=== PATIENT | male | born 1970 | race Two or more races ===

== ENCOUNTER 2019-06-18 23:43 | Inpatient (IN) | payer MEDICARE ==
[~2019-06-18] VITALS: Ht 180.3 cm; Wt 95.3 kg
[~2019-06-18 23:43] MED LIST: BUPR-93 PO; QUET300T2 PO
[2019-06-19] MEDS ORDERED: HALOPERIDOL LACTATE 5 MG/ML VIAL IM ONE (00:15)
[2019-06-19] MEDS ORDERED: LORazepam 2 MG/ML VIAL IM ONE (00:15)
[2019-06-19 00:48] LABS: BASOPHILS % (AUTO) 0.7 % (0.0-2.0); EOSINOPHILS % (AUTO) 0 % (1.0-6.0); HEMATOCRIT 45.6 % (41-53); HEMOGLOBIN 15.4 g/dL (13.5-17.5); LYMPHOCYTES # (AUTO) 1.3 K/uL (1.0-4.8); LYMPHOCYTES % (AUTO) 11.1 % (22.0-44.0); MEAN CORPUSCULAR HEMOGLOBIN 29.5 pg (26.0-34.0); MEAN CORPUSCULAR HGB CONC 33.8 G/dL (31.0-37.0); MEAN CORPUSCULAR VOLUME 87 fL (80-100); MONOCYTES # (AUTO) 0.9 K/uL (0.1-1.0); MONOCYTES % (AUTO) 7.8 % (2.0-9.0); NEUTROPHILS # (AUTO) 9.3 K/uL (1.8-7.7); NEUTROPHILS % (AUTO) 80.4 % (40.0-70.0); PLATELET COUNT (AUTO) 292 K/uL (150-450); RED BLOOD CELL COUNT(AUTO) 5.22 MIL/uL (4.50-5.90); RED CELL DISTRIBUTION WIDTH 14.4 % (11.5-14.5)
[2019-06-19 01:06] LABS: ALANINE AMINOTRANSFERASE 33 U/L (12-78); ALKALINE PHOSPHATASE 108 U/L (46-116); ANION GAP 19 mmol/L (8-16); ASPARTATE AMINOTRANSFERASE 33 U/L (15-37); BILIRUBIN,TOTAL 0.2 mg/dL (0.1-1.0); CALCIUM, TOTAL 8.8 mg/dL (8.8-10.5); CARBON DIOXIDE 20 mmol/L (22-29); CHLORIDE 100 mmol/L (98-107); CREATININE 1.44 mg/dL (0.60-1.30); GLOMERULAR FILTR. RATE CALC 52 mL/min (>60); GLUCOSE,RANDOM 164 mg/dL (70-110); POTASSIUM 3.7 mmol/L (3.5-5.1); SODIUM SERUM 139 mmol/L (136-145); TOTAL PROTEIN, SERUM 8.2 g/dL (6.4-8.2)
[2019-06-19 01:11] LABS: ACETAMINOPHEN < 2 mcg/mL (10-30)
[2019-06-19 01:17] LABS: UREA NITROGEN, BLOOD 19 mg/dL (7-18)
[2019-06-19] MEDS ORDERED: SODIUM CHLORIDE 0.9% 1,000 ML IV ONE ×3 (02:30→08:15)
[2019-06-19 03:43] LABS: AMPHET/METH SCREEN,URINE POSITIVE (NEGATIVE); BARBITURATE SCREEN, URINE NEGATIVE (NEGATIVE); BENZODIAZEPINES SCREEN,URINE NEGATIVE (NEGATIVE); CANNABINOID SCREEN,URINE NEGATIVE (NEGATIVE); COCAINE SCREEN,URINE NEGATIVE (NEGATIVE); METHADONE SCREEN, URINE NEGATIVE (NEGATIVE); OPIATE SCREEN,URINE NEGATIVE (NEGATIVE); PHENCYCLIDINE SCREEN,URINE NEGATIVE (NEGATIVE)
[2019-06-19] MEDS ORDERED: 0.9% SODIUM CHLORIDE 10 ML SYRINGE IVP PRN (04:15)
[2019-06-19] MEDS ORDERED: ACETAMINOPHEN 325 MG TABLET PO PRN ×2 (04:15→08:15)
[2019-06-19] MEDS ORDERED: LORazepam 2 MG/ML VIAL IVP PRN (08:15)
[2019-06-19] MEDS ORDERED: FAMOTIDINE 20 MG TABLET PO SCH (09:00)
[2019-06-19] MEDS: MULTIVITAMINS WITH MINERALS, THERAPEUTIC TABLET PO SCH (10:08)
[2019-06-19] MEDS: DOCUSATE SODIUM 100 MG CAPSULE PO SCH ×3 (10:08→21:01)
[2019-06-19] MEDS ORDERED: BuPROPion HCL XL 150 MG ER TABLET PO SCH (12:15)
[2019-06-19] MEDS ORDERED: CloNIDine HCL 0.1 MG TABLET PO PRN (14:00)
[2019-06-19] MEDS ORDERED: QUEtiapine FUMARATE 200 MG TABLET PO SCH (21:00)
[2019-06-20] MEDS ORDERED: BuPROPion HCL XL 150 MG ER TABLET PO SCH (09:00)
[2019-06-20] MEDS ORDERED: ZOLPIDEM TARTRATE 10 MG TABLET PO PRN (09:30)
[2019-06-20] MEDS ORDERED: HALOPERIDOL 5 MG TABLET PO PRN (09:30)
[2019-06-20 09:47] LABS: BASOPHILS % (AUTO) 0.7 % (0.0-2.0); EOSINOPHILS % (AUTO) 7.7 % (1.0-6.0); HEMOGLOBIN 13.8 g/dL (13.5-17.5); LYMPHOCYTES # (AUTO) 1.9 K/uL (1.0-4.8); LYMPHOCYTES % (AUTO) 30.6 % (22.0-44.0); MEAN CORPUSCULAR HEMOGLOBIN 29.7 pg (26.0-34.0); MEAN CORPUSCULAR HGB CONC 33.7 G/dL (31.0-37.0); MEAN CORPUSCULAR VOLUME 88 fL (80-100); MONOCYTES # (AUTO) 0.8 K/uL (0.1-1.0); MONOCYTES % (AUTO) 12.5 % (2.0-9.0); NEUTROPHILS % (AUTO) 48.5 % (40.0-70.0); PLATELET COUNT (AUTO) 232 K/uL (150-450); RED BLOOD CELL COUNT(AUTO) 4.65 MIL/uL (4.50-5.90); RED CELL DISTRIBUTION WIDTH 14.3 % (11.5-14.5)
[2019-06-20 09:59] LABS: ANION GAP 6 mmol/L (8-16); CALCIUM, TOTAL 8.6 mg/dL (8.8-10.5); CARBON DIOXIDE 27 mmol/L (22-29); CHLORIDE 107 mmol/L (98-107); CREATININE 0.91 mg/dL (0.60-1.30); GLOMERULAR FILTR. RATE CALC > 60 mL/min (>60); GLUCOSE,RANDOM 93 mg/dL (70-110); POTASSIUM 4.2 mmol/L (3.5-5.1); SODIUM SERUM 140 mmol/L (136-145); UREA NITROGEN, BLOOD 10 mg/dL (7-18)
[2019-06-20 11:52] VITALS: BP 131/89
[2019-06-20] MEDS: MULTIVITAMINS WITH MINERALS, THERAPEUTIC TABLET PO SCH (13:33)
[2019-06-20 16:02] VITALS: BP 133/87
[2019-06-20] MEDS ORDERED: DOCUSATE SODIUM 100 MG CAPSULE PO PRN (16:45)
[2019-06-20] MEDS ORDERED: ALBUTEROL SULFATE HFA 90 MCG/PUFF 8 GM INHALER IH PRN (16:45)
[2019-06-20] MEDS ORDERED: IBUPROFEN 400 MG TABLET PO PRN (16:45)
[2019-06-20] MEDS ORDERED: MAGNESIUM HYDROXIDE SUSPENSION 30 ML UDCUP PO PRN (16:45)
[2019-06-20] MEDS ORDERED: NICOTINE 14 MG/24 HOUR PATCH TD PRN (16:45)
[2019-06-20] MEDS ORDERED: GuaiFENesin/D-METHORPHAN [SUGAR-FREE] 200-20MG/10 ML SYRUP UDCUP PO PRN (16:45)
[2019-06-20] MEDS ORDERED: PETROLATUM,WHITE 28 GM JELLY TP PRN (16:45)
[2019-06-20] MEDS ORDERED: ONDANSETRON HCL 4 MG TABLET PO PRN (16:45)
[2019-06-20] MEDS ORDERED: CloNIDine HCL 0.1 MG TABLET PO PRN (16:45)
[2019-06-20] MEDS ORDERED: MAG HYDROX/AL HYDROX/SIMETH ES 30 ML SUSPENSION UDCUP PO PRN (16:45)
[2019-06-20] MEDS ORDERED: LOPERAMIDE HCL 2 MG CAPSULE PO PRN (16:45)
[2019-06-20] MEDS: ACETAMINOPHEN 325 MG TABLET PO PRN (18:16)
[2019-06-20] MEDS: LORazepam 2 MG TABLET PO PRN (18:16)
[2019-06-20] MEDS ORDERED: QUEtiapine FUMARATE 200 MG TABLET PO SCH (21:00)
[2019-06-20] MEDS ORDERED: QUEtiapine FUMARATE 300 MG TABLET PO SCH (21:00)
[2019-06-20] MEDS: QUEtiapine FUMARATE 200 MG TABLET PO SCH (21:14)
[2019-06-21 05:53] VITALS: BP 128/83
[2019-06-21] MEDS: FAMOTIDINE 20 MG TABLET PO SCH ×2 (08:05→09:00)
[2019-06-21] MEDS: MULTIVITAMINS WITH MINERALS, THERAPEUTIC TABLET PO SCH ×2 (08:06→09:00)
[2019-06-21] MEDS: BuPROPion HCL XL 150 MG ER TABLET PO SCH (08:07)
[2019-06-21 08:15] VITALS: BP 130/80
[2019-06-21] MEDS ORDERED: BuPROPion HCL XL 150 MG ER TABLET PO SCH ×2 (09:00)
[2019-06-21] MEDS: LORazepam 2 MG TABLET PO PRN ×2 (13:11→13:12)
[2019-06-21 16:02] VITALS: BP 125/75
[2019-06-21] MEDS: THIAMINE HCL 100 MG TABLET PO SCH (16:06)
[2019-06-21] MEDS: BACITRACIN 28.4 GM OINTMENT TP SCH (17:00)
[2019-06-21] MEDS: SULFAMETHOX/TRIMETH DS 800-160 MG/TABLET PO SCH (17:18)
[2019-06-21] MEDS: QUEtiapine FUMARATE 200 MG TABLET PO SCH (20:07)
[2019-06-22 00:27] VITALS: BP 133/84
[2019-06-22 08:03] VITALS: BP 138/87
[2019-06-22] MEDS: SULFAMETHOX/TRIMETH DS 800-160 MG/TABLET PO SCH ×2 (08:34→16:40)
[2019-06-22] MEDS: BuPROPion HCL XL 150 MG ER TABLET PO SCH (08:34)
[2019-06-22] MEDS: MULTIVITAMINS WITH MINERALS, THERAPEUTIC TABLET PO SCH (08:34)
[2019-06-22] MEDS: FOLIC ACID 1 MG TABLET PO SCH (08:34)
[2019-06-22] MEDS: THIAMINE HCL 100 MG TABLET PO SCH ×2 (08:34→16:40)
[2019-06-22] MEDS: FAMOTIDINE 20 MG TABLET PO SCH (08:35)
[2019-06-22] MEDS: BACITRACIN 28.4 GM OINTMENT TP SCH ×2 (08:36→16:40)
[2019-06-22] MEDS: LORazepam 2 MG TABLET PO PRN (13:11)
[2019-06-22 16:15] VITALS: BP 132/79
[2019-06-22] MEDS: ACETAMINOPHEN 325 MG TABLET PO PRN (18:15)
[2019-06-22] MEDS: QUEtiapine FUMARATE 200 MG TABLET PO SCH (20:23)
[2019-06-23 00:47] VITALS: BP 131/82
[2019-06-23 08:12] VITALS: BP 103/61
[2019-06-23] MEDS: FAMOTIDINE 20 MG TABLET PO SCH (08:49)
[2019-06-23] MEDS: THIAMINE HCL 100 MG TABLET PO SCH ×2 (08:49→16:14)
[2019-06-23] MEDS: MULTIVITAMINS WITH MINERALS, THERAPEUTIC TABLET PO SCH (08:49)
[2019-06-23] MEDS: BuPROPion HCL XL 150 MG ER TABLET PO SCH (08:49)
[2019-06-23] MEDS: FOLIC ACID 1 MG TABLET PO SCH (08:49)
[2019-06-23] MEDS: SULFAMETHOX/TRIMETH DS 800-160 MG/TABLET PO SCH ×2 (09:22→16:14)
[2019-06-23] MEDS: BACITRACIN 28.4 GM OINTMENT TP SCH ×2 (09:23→16:15)
[2019-06-23] MEDS: LORazepam 2 MG TABLET PO PRN ×2 (13:09→19:30)
[2019-06-23 16:04] VITALS: BP 133/82
[2019-06-23] MEDS: QUEtiapine FUMARATE 300 MG TABLET PO SCH (20:05)
[2019-06-24 01:31] VITALS: BP 106/75
[2019-06-24 08:10] VITALS: BP 122/76
[2019-06-24] MEDS: BuPROPion HCL XL 150 MG ER TABLET PO SCH (08:38)
[2019-06-24] MEDS: FOLIC ACID 1 MG TABLET PO SCH (08:39)
[2019-06-24] MEDS: THIAMINE HCL 100 MG TABLET PO SCH ×2 (08:39→16:30)
[2019-06-24] MEDS: SULFAMETHOX/TRIMETH DS 800-160 MG/TABLET PO SCH ×2 (08:39→16:30)
[2019-06-24] MEDS: MULTIVITAMINS WITH MINERALS, THERAPEUTIC TABLET PO SCH (08:39)
[2019-06-24] MEDS: FAMOTIDINE 20 MG TABLET PO SCH (08:52)
[2019-06-24] MEDS: BACITRACIN 28.4 GM OINTMENT TP SCH ×2 (08:57→16:31)
[2019-06-24] MEDS: LORazepam 2 MG TABLET PO PRN (12:56)
[2019-06-24 16:13] VITALS: BP 122/94
[2019-06-24] MEDS: QUEtiapine FUMARATE 300 MG TABLET PO SCH (20:34)
[2019-06-25 08:14] VITALS: BP 137/86
[2019-06-25] MEDS: FAMOTIDINE 20 MG TABLET PO SCH (08:46)
[2019-06-25] MEDS: SULFAMETHOX/TRIMETH DS 800-160 MG/TABLET PO SCH ×2 (08:46→16:20)
[2019-06-25] MEDS: FOLIC ACID 1 MG TABLET PO SCH (08:46)
[2019-06-25] MEDS: BuPROPion HCL XL 150 MG ER TABLET PO SCH (08:46)
[2019-06-25] MEDS: BACITRACIN 28.4 GM OINTMENT TP SCH ×2 (08:46→16:25)
[2019-06-25] MEDS: MULTIVITAMINS WITH MINERALS, THERAPEUTIC TABLET PO SCH (08:46)
[2019-06-25] MEDS: THIAMINE HCL 100 MG TABLET PO SCH ×2 (08:46→16:20)
[2019-06-25] MEDS: LORazepam 2 MG TABLET PO PRN (13:02)
[2019-06-25] MEDS: FLUTICASONE PROPIONATE 50 MCG/SPRAY 16 GM NASAL SPRAY NASAL PRN (14:46)
[2019-06-25 16:11] VITALS: BP 122/71
[2019-06-25] MEDS: QUEtiapine FUMARATE 300 MG TABLET PO SCH (20:16)
[2019-06-26 00:22] VITALS: BP 134/88
[2019-06-26] MEDS: THIAMINE HCL 100 MG TABLET PO SCH ×2 (08:37→17:19)
[2019-06-26] MEDS: FAMOTIDINE 20 MG TABLET PO SCH (08:37)
[2019-06-26] MEDS: MULTIVITAMINS WITH MINERALS, THERAPEUTIC TABLET PO SCH (08:37)
[2019-06-26] MEDS: SULFAMETHOX/TRIMETH DS 800-160 MG/TABLET PO SCH ×2 (08:37→17:19)
[2019-06-26] MEDS: BuPROPion HCL XL 150 MG ER TABLET PO SCH (08:38)
[2019-06-26] MEDS: FOLIC ACID 1 MG TABLET PO SCH (08:38)
[2019-06-26] MEDS: BACITRACIN 28.4 GM OINTMENT TP SCH ×2 (08:39→17:19)
[2019-06-26 08:42] VITALS: BP 130/80
[2019-06-26] MEDS ORDERED: ONDANSETRON HCL 4 MG/2 ML VIAL IM PRN (09:15)
[2019-06-26] MEDS ORDERED: MetroNIDAZOLE 500 MG TABLET PO SCH (13:00)
[2019-06-26] MEDS: LORazepam 2 MG TABLET PO PRN (13:32)
[2019-06-26 16:04] VITALS: BP 130/81
[2019-06-26] MEDS: MetroNIDAZOLE 500 MG TABLET PO SCH (17:19)
[2019-06-26] MEDS: QUEtiapine FUMARATE 300 MG TABLET PO SCH (20:06)
[2019-06-26] MEDS: ACETAMINOPHEN 325 MG TABLET PO PRN (20:07)
[2019-06-26] MEDS: FLUTICASONE PROPIONATE 50 MCG/SPRAY 16 GM NASAL SPRAY NASAL PRN (20:13)
[2019-06-27 05:29] VITALS: BP 106/65
[2019-06-27 08:10] VITALS: BP 123/82
[2019-06-27] MEDS: BACITRACIN 28.4 GM OINTMENT TP SCH ×2 (09:00→17:00)
[2019-06-27] MEDS: SULFAMETHOX/TRIMETH DS 800-160 MG/TABLET PO SCH ×2 (09:10→16:40)
[2019-06-27] MEDS: FAMOTIDINE 20 MG TABLET PO SCH (09:10)
[2019-06-27] MEDS: THIAMINE HCL 100 MG TABLET PO SCH ×2 (09:10→16:40)
[2019-06-27] MEDS: MetroNIDAZOLE 500 MG TABLET PO SCH ×3 (09:10→16:41)
[2019-06-27] MEDS: MULTIVITAMINS WITH MINERALS, THERAPEUTIC TABLET PO SCH (09:10)
[2019-06-27] MEDS: BuPROPion HCL XL 150 MG ER TABLET PO SCH (09:10)
[2019-06-27] MEDS: FOLIC ACID 1 MG TABLET PO SCH (09:10)
[2019-06-27] MEDS: LORazepam 2 MG TABLET PO PRN ×2 (12:35→16:41)
[2019-06-27 16:03] VITALS: BP 122/68
[2019-06-27] MEDS: QUEtiapine FUMARATE 200 MG TABLET PO SCH (20:13)
[2019-06-28 03:51] VITALS: BP 117/60
[2019-06-28] MEDS: MetroNIDAZOLE 500 MG TABLET PO SCH ×3 (08:15→16:45)
[2019-06-28 08:43] VITALS: BP 140/71
[2019-06-28] MEDS: FOLIC ACID 1 MG TABLET PO SCH (08:59)
[2019-06-28] MEDS: BACITRACIN 28.4 GM OINTMENT TP SCH ×2 (09:00→16:46)
[2019-06-28] MEDS: BuPROPion HCL XL 150 MG ER TABLET PO SCH (09:00)
[2019-06-28] MEDS: MULTIVITAMINS WITH MINERALS, THERAPEUTIC TABLET PO SCH (09:01)
[2019-06-28] MEDS: FAMOTIDINE 20 MG TABLET PO SCH (11:14)
[2019-06-28] MEDS: SULFAMETHOX/TRIMETH DS 800-160 MG/TABLET PO SCH ×2 (11:14→16:45)
[2019-06-28] MEDS: THIAMINE HCL 100 MG TABLET PO SCH ×2 (11:15→16:45)
[2019-06-28] MEDS: LORazepam 2 MG TABLET PO PRN ×2 (11:40→18:05)
[2019-06-28] MEDS: ACETAMINOPHEN 325 MG TABLET PO PRN (11:41)
[2019-06-28] MEDS: FLUTICASONE PROPIONATE 50 MCG/SPRAY 16 GM NASAL SPRAY NASAL PRN (17:57)
[2019-06-28] MEDS: QUEtiapine FUMARATE 200 MG TABLET PO SCH (20:26)
[2019-06-29 00:24] VITALS: BP 110/60
[2019-06-29 08:30] VITALS: BP 123/66
[2019-06-29] MEDS: SULFAMETHOX/TRIMETH DS 800-160 MG/TABLET PO SCH ×2 (09:04→16:30)
[2019-06-29] MEDS: FOLIC ACID 1 MG TABLET PO SCH (09:04)
[2019-06-29] MEDS: FAMOTIDINE 20 MG TABLET PO SCH (09:05)
[2019-06-29] MEDS: THIAMINE HCL 100 MG TABLET PO SCH ×2 (09:05→16:30)
[2019-06-29] MEDS: MetroNIDAZOLE 500 MG TABLET PO SCH ×3 (09:05→16:30)
[2019-06-29] MEDS: MULTIVITAMINS WITH MINERALS, THERAPEUTIC TABLET PO SCH (09:05)
[2019-06-29] MEDS: BuPROPion HCL XL 150 MG ER TABLET PO SCH (09:05)
[2019-06-29] MEDS: BACITRACIN 28.4 GM OINTMENT TP SCH ×2 (09:07→16:32)
[2019-06-29] MEDS: FLUTICASONE PROPIONATE 50 MCG/SPRAY 16 GM NASAL SPRAY NASAL PRN (10:49)
[2019-06-29] MEDS: LORazepam 2 MG TABLET PO PRN ×2 (10:50→18:10)
[2019-06-29 16:15] VITALS: BP_SYST 109; BP_SYST 116; BP_DIAS 80
[2019-06-29] MEDS: QUEtiapine FUMARATE 200 MG TABLET PO SCH (20:34)
[2019-06-30 00:51] VITALS: BP 115/71
[2019-06-30 08:10] VITALS: BP 115/69
[2019-06-30] MEDS: MetroNIDAZOLE 500 MG TABLET PO SCH ×3 (08:10→16:31)
[2019-06-30] MEDS: FAMOTIDINE 20 MG TABLET PO SCH (08:11)
[2019-06-30] MEDS: MULTIVITAMINS WITH MINERALS, THERAPEUTIC TABLET PO SCH (08:11)
[2019-06-30] MEDS: FOLIC ACID 1 MG TABLET PO SCH (08:11)
[2019-06-30] MEDS: SULFAMETHOX/TRIMETH DS 800-160 MG/TABLET PO SCH ×2 (08:11→16:31)
[2019-06-30] MEDS: BuPROPion HCL XL 150 MG ER TABLET PO SCH (08:11)
[2019-06-30] MEDS: THIAMINE HCL 100 MG TABLET PO SCH ×2 (08:11→16:31)
[2019-06-30] MEDS: BACITRACIN 28.4 GM OINTMENT TP SCH ×2 (08:12→16:32)
[2019-06-30] MEDS: LORazepam 2 MG TABLET PO PRN (13:05)
[2019-06-30 16:07] VITALS: BP 133/87
[2019-06-30] MEDS: QUEtiapine FUMARATE 200 MG TABLET PO SCH (20:32)
[2019-06-30] MEDS ORDERED: QUET300T2 PO (22:08)
[2019-06-30] MEDS ORDERED: BUPR-93 PO (22:08)
[2019-07-01] MEDS ORDERED: SULF1TAB42 PO ×2 (08:00→08:08)
[2019-07-01] MEDS ORDERED: FAMO20 PO (08:00)
[2019-07-01] MEDS ORDERED: BACI30OI6 TP (08:01)
[2019-07-01 08:16] VITALS: BP 132/73
[2019-07-01] MEDS: SULFAMETHOX/TRIMETH DS 800-160 MG/TABLET PO SCH (08:44)
[2019-07-01] MEDS: MULTIVITAMINS WITH MINERALS, THERAPEUTIC TABLET PO SCH (08:44)
[2019-07-01] MEDS: BuPROPion HCL XL 150 MG ER TABLET PO SCH (08:44)
[2019-07-01] MEDS: FAMOTIDINE 20 MG TABLET PO SCH (08:44)
[2019-07-01] MEDS: THIAMINE HCL 100 MG TABLET PO SCH (08:44)
[2019-07-01] MEDS: FOLIC ACID 1 MG TABLET PO SCH (08:44)
[2019-07-01] MEDS: BACITRACIN 28.4 GM OINTMENT TP SCH (08:45)
== END 2019-07-01 10:00 | disposition home or self-care (01) | DRG 885 ==
LOC: EMS 23:54 → EDBD 23:54 → B2X 06-20 12:43 → B2S 06-30 09:32 → B2X 06-30 09:51
DX: F25.1 Schizoaffective disorder, depressive type (principal); N17.9 Acute kidney failure, unspecified; R65.10 Systemic inflammatory response syndrome (SIRS) of non-infectious origin without acute organ dysfunction; G44.209 Tension-type headache, unspecified, not intractable; I10 Essential (primary) hypertension; J30.9 Allergic rhinitis, unspecified; F15.10 Other stimulant abuse, uncomplicated; F41.9 Anxiety disorder, unspecified; F11.90 Opioid use, unspecified, uncomplicated; F10.10 Alcohol abuse, uncomplicated; Z59.0 Homelessness; Z79.899 Other long term (current) drug therapy; Z91.19 Patient's noncompliance with other medical treatment and regimen
CPT/HCPCS: G0480; G0481; J1630; J2060; J2405; J7030; Q0162

== ENCOUNTER 2019-07-07 11:36 | Inpatient (IN) | payer MEDICARE ==
[~2019-07-07] VITALS: Ht 180.3 cm; Wt 83.7 kg
[~2019-07-07 11:36] MED LIST changes: +BACI30OI6 TP; +FAMO20 PO; +SULF1TAB42 PO
[2019-07-07 11:42] VITALS: BP 132/71
[2019-07-07] MEDS ORDERED: HALOPERIDOL 5 MG TABLET PO PRN (12:00)
[2019-07-07 13:32] VITALS: BP 129/73
[2019-07-07 16:42] VITALS: BP 150/90
[2019-07-07] MEDS ORDERED: MAGNESIUM HYDROXIDE SUSPENSION 30 ML UDCUP PO PRN (17:15)
[2019-07-07] MEDS ORDERED: GuaiFENesin/D-METHORPHAN [SUGAR-FREE] 200-20MG/10 ML SYRUP UDCUP PO PRN (17:15)
[2019-07-07] MEDS ORDERED: NICOTINE 14 MG/24 HOUR PATCH TD PRN (17:15)
[2019-07-07] MEDS ORDERED: PETROLATUM,WHITE 28 GM JELLY TP PRN (17:15)
[2019-07-07] MEDS ORDERED: DOCUSATE SODIUM 100 MG CAPSULE PO PRN (17:15)
[2019-07-07] MEDS ORDERED: ONDANSETRON HCL 4 MG TABLET PO PRN (17:15)
[2019-07-07] MEDS ORDERED: LOPERAMIDE HCL 2 MG CAPSULE PO PRN (17:15)
[2019-07-07] MEDS ORDERED: MAG HYDROX/AL HYDROX/SIMETH ES 30 ML SUSPENSION UDCUP PO PRN (17:15)
[2019-07-07] MEDS ORDERED: ACETAMINOPHEN 325 MG TABLET PO PRN (17:15)
[2019-07-07] MEDS ORDERED: CloNIDine HCL 0.1 MG TABLET PO PRN (17:15)
[2019-07-07] MEDS ORDERED: ALBUTEROL SULFATE HFA 90 MCG/PUFF 8 GM INHALER IH PRN (17:15)
[2019-07-07] MEDS ORDERED: IBUPROFEN 400 MG TABLET PO PRN (17:15)
[2019-07-07] MEDS: LORazepam 2 MG TABLET PO PRN (18:38)
[2019-07-07] MEDS: QUEtiapine FUMARATE 200 MG TABLET PO SCH (20:35)
[2019-07-08 06:30] VITALS: BP 140/85
[2019-07-08 08:09] LABS: BASOPHILS % (AUTO) 0.8 % (0.0-2.0); EOSINOPHILS % (AUTO) 8.1 % (1.0-6.0); HEMATOCRIT 43.4 % (41-53); HEMOGLOBIN 14.4 g/dL (13.5-17.5); LYMPHOCYTES # (AUTO) 2.2 K/uL (1.0-4.8); LYMPHOCYTES % (AUTO) 36.9 % (22.0-44.0); MEAN CORPUSCULAR HEMOGLOBIN 29.2 pg (26.0-34.0); MEAN CORPUSCULAR HGB CONC 33.2 G/dL (31.0-37.0); MEAN CORPUSCULAR VOLUME 88 fL (80-100); MONOCYTES # (AUTO) 0.8 K/uL (0.1-1.0); MONOCYTES % (AUTO) 12.6 % (2.0-9.0); NEUTROPHILS # (AUTO) 2.5 K/uL (1.8-7.7); NEUTROPHILS % (AUTO) 41.6 % (40.0-70.0); PLATELET COUNT (AUTO) 307 K/uL (150-450); RED BLOOD CELL COUNT(AUTO) 4.94 MIL/uL (4.50-5.90); RED CELL DISTRIBUTION WIDTH 14.9 % (11.5-14.5)
[2019-07-08 08:24] VITALS: BP 129/84
[2019-07-08 08:35] LABS: APPEARANCE,URINE TURBID (CLEAR); BILIRUBIN,URINE NEGATIVE (NEGATIVE); GLUCOSE, URINE (UA) NEGATIVE (NEGATIVE); KETONES,URINE NEGATIVE (NEGATIVE); LEUKOCYTE ESTERASE ,URINE NEGATIVE (NEGATIVE); NITRATE,URINE NEGATIVE (NEGATIVE); OCCULT BLOOD,URINE NEGATIVE (NEGATIVE); PROTEIN,URINE POS 1+ (NEGATIVE); UROBILINOGEN,URINE 0.2 mg/dL (<=1.0)
[2019-07-08 08:37] LABS: HEMOGLOBIN A1C 5.6 % (4.5-6.2)
[2019-07-08 08:41] LABS: AMPHET/METH SCREEN,URINE NEGATIVE (NEGATIVE); BARBITURATE SCREEN, URINE NEGATIVE (NEGATIVE); BENZODIAZEPINES SCREEN,URINE NEGATIVE (NEGATIVE); CANNABINOID SCREEN,URINE NEGATIVE (NEGATIVE); COCAINE SCREEN,URINE NEGATIVE (NEGATIVE); METHADONE SCREEN, URINE NEGATIVE (NEGATIVE); OPIATE SCREEN,URINE NEGATIVE (NEGATIVE)
[2019-07-08 08:46] LABS: PHENCYCLIDINE SCREEN,URINE NEGATIVE (NEGATIVE)
[2019-07-08 08:55] LABS: AMORPHOUS SEDIMENT,UR Many /LPF (None Seen); BACTERIA,URINE None Seen /HPF (None Seen); RBC,URINE None Seen /HPF (0-2); WBC,URINE None Seen /HPF (0-5)
[2019-07-08 09:01] LABS: ALANINE AMINOTRANSFERASE 23 U/L (12-78); ALBUMIN 3.3 g/dL (3.4-5.0); ALKALINE PHOSPHATASE 85 U/L (46-116); ANION GAP 8 mmol/L (8-16); ASPARTATE AMINOTRANSFERASE 16 U/L (15-37); BILIRUBIN,TOTAL 0.3 mg/dL (0.1-1.0); CALCIUM, TOTAL 8.7 mg/dL (8.8-10.5); CARBON DIOXIDE 26 mmol/L (22-29); CHLORIDE 106 mmol/L (98-107); CHOL/HDL RATIO 4.3 (4.2-7.3); CHOLESTEROL 160 mg/dL (131-200); CREATININE 1.11 mg/dL (0.60-1.30); FREE T4 (FREE THYROXINE) 0.76 ng/dL (0.76-1.46); GLOMERULAR FILTR. RATE CALC > 60 mL/min (>60); GLUCOSE,RANDOM 86 mg/dL (70-110); HDL CHOLESTEROL 37 mg/dL (40-60); LDL CHOL (CALC.) 104 mg/dL (0-130); POTASSIUM 4.7 mmol/L (3.5-5.1); SODIUM SERUM 140 mmol/L (136-145); THYROID STIMULATING HORMONE 2.03 uIU/mL (0.36-3.74); TOTAL PROTEIN, SERUM 6.8 g/dL (6.4-8.2); TRIGLYCERIDES 93 mg/dL (15-150); UREA NITROGEN, BLOOD 13 mg/dL (7-18)
[2019-07-08] MEDS: BuPROPion HCL XL 150 MG ER TABLET PO SCH (09:28)
[2019-07-08] MEDS: MULTIVITAMINS WITH MINERALS, THERAPEUTIC TABLET PO SCH (09:28)
[2019-07-08] MEDS: FOLIC ACID 1 MG TABLET PO SCH (09:28)
[2019-07-08] MEDS: THIAMINE HCL 100 MG TABLET PO SCH (09:28)
[2019-07-08] MEDS: FAMOTIDINE 20 MG TABLET PO SCH (09:29)
[2019-07-08] MEDS: LORazepam 2 MG TABLET PO PRN ×2 (11:01→17:42)
[2019-07-08 16:22] VITALS: BP 117/81
[2019-07-08] MEDS: QUEtiapine FUMARATE 200 MG TABLET PO SCH (20:23)
[2019-07-08] MEDS ORDERED: BENZOCAINE/MENTHOL LOZENGE PO PRN (22:30)
[2019-07-08] MEDS: ZOLPIDEM TARTRATE 10 MG TABLET PO PRN (23:00)
[2019-07-09 04:19] VITALS: BP 117/84
[2019-07-09 06:13] VITALS: BP 132/90
[2019-07-09] MEDS: MULTIVITAMINS WITH MINERALS, THERAPEUTIC TABLET PO SCH (08:07)
[2019-07-09] MEDS: BuPROPion HCL XL 150 MG ER TABLET PO SCH (08:07)
[2019-07-09] MEDS: FOLIC ACID 1 MG TABLET PO SCH (08:07)
[2019-07-09] MEDS: THIAMINE HCL 100 MG TABLET PO SCH (08:07)
[2019-07-09] MEDS: FAMOTIDINE 20 MG TABLET PO SCH (08:07)
[2019-07-09 08:18] VITALS: BP 135/86
[2019-07-09] MEDS: LORazepam 2 MG TABLET PO PRN ×2 (08:57→13:53)
[2019-07-09] MEDS: FLUTICASONE PROPIONATE 50 MCG/SPRAY 16 GM NASAL SPRAY NASAL PRN (13:56)
[2019-07-09 16:20] VITALS: BP 138/84
[2019-07-09] MEDS: QUEtiapine FUMARATE 200 MG TABLET PO SCH (20:08)
[2019-07-10 00:23] VITALS: BP 129/70
[2019-07-10 08:22] VITALS: BP 123/84
[2019-07-10] MEDS: FOLIC ACID 1 MG TABLET PO SCH (08:36)
[2019-07-10] MEDS: FAMOTIDINE 20 MG TABLET PO SCH (08:36)
[2019-07-10] MEDS: BuPROPion HCL XL 150 MG ER TABLET PO SCH (08:36)
[2019-07-10] MEDS: THIAMINE HCL 100 MG TABLET PO SCH (08:36)
[2019-07-10] MEDS: MULTIVITAMINS WITH MINERALS, THERAPEUTIC TABLET PO SCH (08:36)
[2019-07-10] MEDS: FLUTICASONE PROPIONATE 50 MCG/SPRAY 16 GM NASAL SPRAY NASAL PRN (08:37)
[2019-07-10] MEDS: LORazepam 2 MG TABLET PO PRN (09:54)
[2019-07-10 16:39] VITALS: BP 122/94
[2019-07-10] MEDS: QUEtiapine FUMARATE 200 MG TABLET PO SCH (20:41)
[2019-07-10] MEDS: ZOLPIDEM TARTRATE 10 MG TABLET PO PRN (20:41)
[2019-07-11 02:33] VITALS: BP 137/87
[2019-07-11 08:14] VITALS: BP 129/69
[2019-07-11] MEDS: THIAMINE HCL 100 MG TABLET PO SCH (08:54)
[2019-07-11] MEDS: MULTIVITAMINS WITH MINERALS, THERAPEUTIC TABLET PO SCH (08:54)
[2019-07-11] MEDS: FAMOTIDINE 20 MG TABLET PO SCH (08:55)
[2019-07-11] MEDS: BuPROPion HCL XL 150 MG ER TABLET PO SCH (08:55)
[2019-07-11] MEDS: FOLIC ACID 1 MG TABLET PO SCH (08:55)
[2019-07-11] MEDS: LORazepam 2 MG TABLET PO PRN ×2 (11:09→16:59)
[2019-07-11] MEDS ORDERED: QUET100T PO (12:48)
[2019-07-11 16:30] VITALS: BP 125/82
[2019-07-11] MEDS: ZOLPIDEM TARTRATE 10 MG TABLET PO PRN (20:15)
[2019-07-11] MEDS: QUEtiapine FUMARATE 200 MG TABLET PO SCH (20:15)
[2019-07-12 07:27] VITALS: BP 136/78
[2019-07-12 08:33] VITALS: BP 110/66
[2019-07-12] MEDS: MULTIVITAMINS WITH MINERALS, THERAPEUTIC TABLET PO SCH (08:49)
[2019-07-12] MEDS: THIAMINE HCL 100 MG TABLET PO SCH (08:49)
[2019-07-12] MEDS: FAMOTIDINE 20 MG TABLET PO SCH (08:49)
[2019-07-12] MEDS: FOLIC ACID 1 MG TABLET PO SCH (08:49)
[2019-07-12] MEDS: BuPROPion HCL XL 150 MG ER TABLET PO SCH (08:50)
[2019-07-12] MEDS: LORazepam 2 MG TABLET PO PRN ×2 (10:44→15:51)
[2019-07-12 16:23] VITALS: BP 123/90
[2019-07-12] MEDS: FLUTICASONE PROPIONATE 50 MCG/SPRAY 16 GM NASAL SPRAY NASAL PRN (20:00)
[2019-07-12] MEDS: QUEtiapine FUMARATE 200 MG TABLET PO SCH (20:25)
[2019-07-13 00:44] VITALS: BP 139/68
[2019-07-13 08:23] VITALS: BP 156/70
[2019-07-13] MEDS: THIAMINE HCL 100 MG TABLET PO SCH (08:23)
[2019-07-13] MEDS: BuPROPion HCL XL 150 MG ER TABLET PO SCH (08:23)
[2019-07-13] MEDS: MULTIVITAMINS WITH MINERALS, THERAPEUTIC TABLET PO SCH (08:23)
[2019-07-13] MEDS: FAMOTIDINE 20 MG TABLET PO SCH (08:24)
[2019-07-13] MEDS: FOLIC ACID 1 MG TABLET PO SCH (08:24)
[2019-07-13] MEDS: LORazepam 2 MG TABLET PO PRN ×2 (09:53→16:04)
[2019-07-13] MEDS: FLUTICASONE PROPIONATE 50 MCG/SPRAY 16 GM NASAL SPRAY NASAL PRN ×2 (09:54→17:44)
[2019-07-13 16:23] VITALS: BP 133/81
[2019-07-13] MEDS: QUEtiapine FUMARATE 200 MG TABLET PO SCH (20:26)
[2019-07-14 06:28] VITALS: BP 128/84
[2019-07-14 08:22] VITALS: BP 117/66
[2019-07-14] MEDS: BuPROPion HCL XL 150 MG ER TABLET PO SCH (09:20)
[2019-07-14] MEDS: MULTIVITAMINS WITH MINERALS, THERAPEUTIC TABLET PO SCH (09:20)
[2019-07-14] MEDS: THIAMINE HCL 100 MG TABLET PO SCH (09:21)
[2019-07-14] MEDS: FAMOTIDINE 20 MG TABLET PO SCH (09:21)
[2019-07-14] MEDS: FOLIC ACID 1 MG TABLET PO SCH (09:21)
[2019-07-14] MEDS: LORazepam 2 MG TABLET PO PRN (16:06)
[2019-07-14 16:17] VITALS: BP 137/78
[2019-07-14] MEDS: QUEtiapine FUMARATE 200 MG TABLET PO SCH (20:37)
[2019-07-14] MEDS: FLUTICASONE PROPIONATE 50 MCG/SPRAY 16 GM NASAL SPRAY NASAL PRN (21:45)
[2019-07-15 01:38] VITALS: BP 135/84
[2019-07-15 08:25] VITALS: BP 130/80
[2019-07-15] MEDS: MULTIVITAMINS WITH MINERALS, THERAPEUTIC TABLET PO SCH (08:30)
[2019-07-15] MEDS: BuPROPion HCL XL 150 MG ER TABLET PO SCH (08:30)
[2019-07-15] MEDS: THIAMINE HCL 100 MG TABLET PO SCH (08:30)
[2019-07-15] MEDS: FOLIC ACID 1 MG TABLET PO SCH (09:18)
[2019-07-15] MEDS: FAMOTIDINE 20 MG TABLET PO SCH (09:21)
[2019-07-15] MEDS: LORazepam 2 MG TABLET PO PRN ×2 (10:15→17:52)
[2019-07-15 16:18] VITALS: BP 126/87
[2019-07-15 17:55] VITALS: BP 125/82
[2019-07-15] MEDS: QUEtiapine FUMARATE 200 MG TABLET PO SCH (19:50)
[2019-07-16 08:16] VITALS: BP 138/90
[2019-07-16] MEDS: MULTIVITAMINS WITH MINERALS, THERAPEUTIC TABLET PO SCH (09:37)
[2019-07-16] MEDS: FAMOTIDINE 20 MG TABLET PO SCH (09:37)
[2019-07-16] MEDS: BuPROPion HCL XL 150 MG ER TABLET PO SCH (09:37)
[2019-07-16] MEDS: THIAMINE HCL 100 MG TABLET PO SCH (09:37)
[2019-07-16] MEDS: FOLIC ACID 1 MG TABLET PO SCH (09:37)
[2019-07-16] MEDS: LORazepam 2 MG TABLET PO PRN ×2 (10:37→17:25)
[2019-07-16 16:41] VITALS: BP 128/81
[2019-07-16] MEDS: QUEtiapine FUMARATE 200 MG TABLET PO SCH (20:47)
[2019-07-17] MEDS: THIAMINE HCL 100 MG TABLET PO SCH (08:48)
[2019-07-17] MEDS: FOLIC ACID 1 MG TABLET PO SCH (08:48)
[2019-07-17] MEDS: FAMOTIDINE 20 MG TABLET PO SCH (08:49)
[2019-07-17] MEDS: BuPROPion HCL XL 150 MG ER TABLET PO SCH (08:49)
[2019-07-17] MEDS: MULTIVITAMINS WITH MINERALS, THERAPEUTIC TABLET PO SCH (08:49)
[2019-07-17] MEDS: FLUTICASONE PROPIONATE 50 MCG/SPRAY 16 GM NASAL SPRAY NASAL PRN (08:51)
[2019-07-17 09:54] VITALS: BP 141/83
[2019-07-17] MEDS: LORazepam 2 MG TABLET PO PRN (10:05)
[2019-07-17] MEDS ORDERED: QUET200T PO (14:00)
== END 2019-07-17 15:33 | disposition home or self-care (01) | DRG 885 ==
LOC: B2X 11:51
DX: F25.9 Schizoaffective disorder, unspecified (principal); R45.851 Suicidal ideations; G44.209 Tension-type headache, unspecified, not intractable; F41.9 Anxiety disorder, unspecified; I10 Essential (primary) hypertension; Z59.0 Homelessness
CPT/HCPCS: 80307; 83036; 84439; 84443; 87081

== ENCOUNTER 2019-07-27 19:11 | Inpatient (IN) | payer MEDICARE ==
[~2019-07-27] VITALS: Ht 180.3 cm; Wt 96.2 kg
[~2019-07-27 19:11] MED LIST changes: -BACI30OI6 TP; -FAMO20 PO; +QUET200T PO; -QUET300T2 PO; -SULF1TAB42 PO
[2019-07-27] MEDS ORDERED: DiphenhydrAMINE HCL 50 MG/ML VIAL IM ONE (19:15)
[2019-07-27] MEDS ORDERED: HALOPERIDOL 5 MG TABLET PO PRN (19:15)
[2019-07-27] MEDS ORDERED: ZOLPIDEM TARTRATE 10 MG TABLET PO PRN (19:15)
[2019-07-27] MEDS ORDERED: HALOPERIDOL LACTATE 5 MG/ML VIAL IM ONE (19:15)
[2019-07-27] MEDS ORDERED: LORazepam 2 MG/ML VIAL IM ONE (19:15)
[2019-07-27] MEDS ORDERED: LORazepam 2 MG TABLET PO PRN (19:15)
[2019-07-27] MEDS ORDERED: HALOPERIDOL LACTATE 5 MG/ML VIAL ONE (19:16)
[2019-07-27] MEDS ORDERED: DiphenhydrAMINE HCL 50 MG/ML VIAL ONE (19:16)
[2019-07-27] MEDS ORDERED: LORazepam 2 MG/ML VIAL ONE (19:16)
[2019-07-27 20:30] VITALS: BP 146/86
[2019-07-27 21:00] VITALS: BP 145/85
[2019-07-28 05:33] VITALS: BP 150/89
[2019-07-28 08:44] VITALS: BP 130/97
[2019-07-28] MEDS ORDERED: MULTIVITAMINS WITH MINERALS, THERAPEUTIC TABLET PO SCH (09:00)
[2019-07-28] MEDS ORDERED: THIAMINE HCL 100 MG TABLET PO SCH (09:00)
[2019-07-28] MEDS ORDERED: FOLIC ACID 1 MG TABLET PO SCH (09:00)
[2019-07-28] MEDS ORDERED: FAMOTIDINE 20 MG TABLET PO SCH (09:00)
[2019-07-28] MEDS ORDERED: MAGNESIUM HYDROXIDE SUSPENSION 30 ML UDCUP PO PRN (09:45)
[2019-07-28] MEDS ORDERED: ACETAMINOPHEN 325 MG TABLET PO PRN (09:45)
[2019-07-28] MEDS ORDERED: DOCUSATE SODIUM 100 MG CAPSULE PO PRN (09:45)
[2019-07-28] MEDS ORDERED: NICOTINE 14 MG/24 HOUR PATCH TD PRN (09:45)
[2019-07-28] MEDS ORDERED: ALBUTEROL SULFATE HFA 90 MCG/PUFF 8 GM INHALER IH PRN (09:45)
[2019-07-28] MEDS ORDERED: GuaiFENesin/D-METHORPHAN [SUGAR-FREE] 200-20MG/10 ML SYRUP UDCUP PO PRN (09:45)
[2019-07-28] MEDS ORDERED: LOPERAMIDE HCL 2 MG CAPSULE PO PRN (09:45)
[2019-07-28] MEDS ORDERED: ONDANSETRON HCL 4 MG TABLET PO PRN (09:45)
[2019-07-28] MEDS ORDERED: CloNIDine HCL 0.1 MG TABLET PO PRN (09:45)
[2019-07-28] MEDS ORDERED: PETROLATUM,WHITE 28 GM JELLY TP PRN (09:45)
[2019-07-28] MEDS ORDERED: IBUPROFEN 400 MG TABLET PO PRN (09:45)
[2019-07-28] MEDS ORDERED: MAG HYDROX/AL HYDROX/SIMETH ES 30 ML SUSPENSION UDCUP PO PRN (09:45)
== END 2019-07-28 10:36 | disposition short-term general hospital (02) | DRG 885 ==
LOC: B3A 19:19
PROVIDERS: ADMIT Psychiatry & Neurology Child & Adolescent Psychiatry
DX: F25.1 Schizoaffective disorder, depressive type (principal); F15.20 Other stimulant dependence, uncomplicated; Z79.899 Other long term (current) drug therapy; D72.829 Elevated white blood cell count, unspecified; R74.0 Nonspecific elevation of levels of transaminase and lactic acid dehydrogenase [LDH]; G44.209 Tension-type headache, unspecified, not intractable; J30.9 Allergic rhinitis, unspecified
CPT/HCPCS: 87081; G0378; G0480; J1200; J1630; J2060

== ENCOUNTER 2019-07-28 07:46 | Inpatient (IN) | payer MEDICARE ==
[~2019-07-28] VITALS: Ht 180.3 cm; Wt 96.2 kg
[2019-07-28] MEDS ORDERED: ZOLPIDEM TARTRATE 10 MG TABLET PO PRN (11:15)
[2019-07-28] MEDS ORDERED: HALOPERIDOL 5 MG TABLET PO PRN (11:15)
[2019-07-28 12:28] VITALS: BP 136/82
[2019-07-28] MEDS: BuPROPion HCL XL 150 MG ER TABLET PO SCH (15:38)
[2019-07-28 16:04] VITALS: BP 140/81
[2019-07-28] MEDS ORDERED: PETROLATUM,WHITE 28 GM JELLY TP PRN (17:15)
[2019-07-28] MEDS ORDERED: GuaiFENesin/D-METHORPHAN [SUGAR-FREE] 200-20MG/10 ML SYRUP UDCUP PO PRN (17:15)
[2019-07-28] MEDS ORDERED: LOPERAMIDE HCL 2 MG CAPSULE PO PRN (17:15)
[2019-07-28] MEDS ORDERED: NICOTINE 14 MG/24 HOUR PATCH TD PRN (17:15)
[2019-07-28] MEDS ORDERED: DOCUSATE SODIUM 100 MG CAPSULE PO PRN (17:15)
[2019-07-28] MEDS ORDERED: ALBUTEROL SULFATE HFA 90 MCG/PUFF 8 GM INHALER IH PRN (17:15)
[2019-07-28] MEDS ORDERED: MAGNESIUM HYDROXIDE SUSPENSION 30 ML UDCUP PO PRN (17:15)
[2019-07-28] MEDS ORDERED: MAG HYDROX/AL HYDROX/SIMETH ES 30 ML SUSPENSION UDCUP PO PRN (17:15)
[2019-07-28] MEDS ORDERED: CloNIDine HCL 0.1 MG TABLET PO PRN (17:15)
[2019-07-28] MEDS ORDERED: ACETAMINOPHEN 325 MG TABLET PO PRN (17:15)
[2019-07-28] MEDS ORDERED: ONDANSETRON HCL 4 MG TABLET PO PRN (17:15)
[2019-07-28 19:17] VITALS: BP 141/86
[2019-07-28] MEDS: IBUPROFEN 400 MG TABLET PO PRN (19:17)
[2019-07-28] MEDS: QUEtiapine FUMARATE 200 MG TABLET PO SCH (20:17)
[2019-07-29 07:13] VITALS: BP 118/79
[2019-07-29 08:09] VITALS: BP 118/79
[2019-07-29] MEDS: BuPROPion HCL XL 150 MG ER TABLET PO SCH (08:34)
[2019-07-29 08:55] LABS: AMPHET/METH SCREEN,URINE POSITIVE (NEGATIVE); BARBITURATE SCREEN, URINE NEGATIVE (NEGATIVE); BENZODIAZEPINES SCREEN,URINE NEGATIVE (NEGATIVE); CANNABINOID SCREEN,URINE NEGATIVE (NEGATIVE); COCAINE SCREEN,URINE NEGATIVE (NEGATIVE); METHADONE SCREEN, URINE NEGATIVE (NEGATIVE); OPIATE SCREEN,URINE NEGATIVE (NEGATIVE)
[2019-07-29 09:09] LABS: BILIRUBIN,URINE NEGATIVE (NEGATIVE); GLUCOSE, URINE (UA) NEGATIVE (NEGATIVE); KETONES,URINE NEGATIVE (NEGATIVE); LEUKOCYTE ESTERASE ,URINE NEGATIVE (NEGATIVE); NITRATE,URINE NEGATIVE (NEGATIVE); PH,URINE 5.5 (5.0-8.0); PROTEIN,URINE NEGATIVE (NEGATIVE); UROBILINOGEN,URINE 0.2 mg/dL (<=1.0)
[2019-07-29 09:24] LABS: PHENCYCLIDINE SCREEN,URINE NEGATIVE (NEGATIVE)
[2019-07-29 09:33] LABS: APPEARANCE,URINE SLIGHTLY CLOUDY (CLEAR); OCCULT BLOOD,URINE MODERATE (NEGATIVE)
[2019-07-29 09:34] LABS: BACTERIA,URINE None Seen /HPF (None Seen); WBC,URINE 0-2 /HPF (0-5)
[2019-07-29] MEDS: IBUPROFEN 400 MG TABLET PO PRN (12:50)
[2019-07-29] MEDS: LORazepam 2 MG TABLET PO PRN (13:26)
[2019-07-29 13:50] VITALS: BP 135/84
[2019-07-29 16:08] VITALS: BP 136/72
[2019-07-29] MEDS: QUEtiapine FUMARATE 200 MG TABLET PO SCH (20:34)
[2019-07-30 01:26] VITALS: BP 102/62
[2019-07-30 08:15] VITALS: BP 112/66
[2019-07-30] MEDS: BuPROPion HCL XL 150 MG ER TABLET PO SCH (08:21)
[2019-07-30] MEDS: LORazepam 2 MG TABLET PO PRN ×2 (11:13→16:23)
[2019-07-30 16:04] VITALS: BP 132/84
[2019-07-30 16:21] VITALS: BP 127/72
[2019-07-30] MEDS: IBUPROFEN 400 MG TABLET PO PRN (16:23)
[2019-07-30] MEDS: QUEtiapine FUMARATE 200 MG TABLET PO SCH (20:04)
[2019-07-31] MEDS: BuPROPion HCL XL 150 MG ER TABLET PO SCH (08:27)
[2019-07-31] MEDS: IBUPROFEN 400 MG TABLET PO PRN (08:27)
[2019-07-31 08:29] VITALS: BP 134/78
[2019-07-31] MEDS: LORazepam 2 MG TABLET PO PRN (11:05)
[2019-07-31] MEDS ORDERED: BUPR-47 PO (12:52)
[2019-07-31] MEDS ORDERED: QUET200T29 PO (12:52)
== END 2019-07-31 14:20 | disposition home or self-care (01) | DRG 885 ==
LOC: B2X 11:20
DX: F25.1 Schizoaffective disorder, depressive type (principal); G44.209 Tension-type headache, unspecified, not intractable; F19.10 Other psychoactive substance abuse, uncomplicated; I10 Essential (primary) hypertension; F41.9 Anxiety disorder, unspecified; R00.0 Tachycardia, unspecified; Z79.899 Other long term (current) drug therapy
CPT/HCPCS: 87081; G0378; G0480

== ENCOUNTER 2019-07-31 18:17 | Inpatient (IN) | payer MEDICARE, MEDICAID ==
[~2019-07-31] VITALS: Ht 180.3 cm; Wt 96.3 kg
[~2019-07-31 18:17] MED LIST changes: +BUPR-47 PO; +QUET200T29 PO
[2019-07-31] MEDS ORDERED: LORazepam 2 MG TABLET PO ONE (19:45)
[2019-07-31] MEDS ORDERED: DiphenhydrAMINE HCL 50 MG CAPSULE PO ONE (19:45)
[2019-07-31] MEDS ORDERED: HALOPERIDOL 5 MG TABLET PO ONE (19:45)
[2019-07-31 23:01] LABS: BASOPHILS % (AUTO) 0.5 % (0.0-2.0); EOSINOPHILS % (AUTO) 0.3 % (1.0-6.0); HEMATOCRIT 43.2 % (41-53); HEMOGLOBIN 14.5 g/dL (13.5-17.5); LYMPHOCYTES # (AUTO) 1.5 K/uL (1.0-4.8); LYMPHOCYTES % (AUTO) 12.9 % (22.0-44.0); MEAN CORPUSCULAR HEMOGLOBIN 29.2 pg (26.0-34.0); MEAN CORPUSCULAR HGB CONC 33.5 G/dL (31.0-37.0); MEAN CORPUSCULAR VOLUME 87 fL (80-100); MONOCYTES # (AUTO) 1.1 K/uL (0.1-1.0); MONOCYTES % (AUTO) 9.4 % (2.0-9.0); NEUTROPHILS # (AUTO) 8.9 K/uL (1.8-7.7); NEUTROPHILS % (AUTO) 76.9 % (40.0-70.0); PLATELET COUNT (AUTO) 324 K/uL (150-450); RED BLOOD CELL COUNT(AUTO) 4.96 MIL/uL (4.50-5.90); RED CELL DISTRIBUTION WIDTH 14.2 % (11.5-14.5)
[2019-07-31 23:09] LABS: ANION GAP 11 mmol/L (8-16); CALCIUM, TOTAL 9.2 mg/dL (8.8-10.5); CARBON DIOXIDE 25 mmol/L (22-29); CHLORIDE 102 mmol/L (98-107); CREATININE 1.15 mg/dL (0.60-1.30); GLOMERULAR FILTR. RATE CALC > 60 mL/min (>60); GLUCOSE,RANDOM 113 mg/dL (70-110); SODIUM SERUM 138 mmol/L (136-145); UREA NITROGEN, BLOOD 14 mg/dL (7-18)
[2019-07-31 23:15] LABS: ALANINE AMINOTRANSFERASE 106 U/L (12-78); ALKALINE PHOSPHATASE 91 U/L (46-116); ASPARTATE AMINOTRANSFERASE 120 U/L (15-37); BILIRUBIN,TOTAL 0.5 mg/dL (0.1-1.0)
[2019-08-01] MEDS ORDERED: ZOLPIDEM TARTRATE 10 MG TABLET PO PRN (02:30)
[2019-08-01 04:44] VITALS: BP 121/99
[2019-08-01 08:30] VITALS: BP 146/95
[2019-08-01] MEDS ORDERED: NICOTINE 14 MG/24 HOUR PATCH TD PRN (08:45)
[2019-08-01] MEDS ORDERED: MAGNESIUM HYDROXIDE SUSPENSION 30 ML UDCUP PO PRN (08:45)
[2019-08-01] MEDS ORDERED: DOCUSATE SODIUM 100 MG CAPSULE PO PRN (08:45)
[2019-08-01] MEDS ORDERED: ALBUTEROL SULFATE HFA 90 MCG/PUFF 8 GM INHALER IH PRN (08:45)
[2019-08-01] MEDS ORDERED: PETROLATUM,WHITE 28 GM JELLY TP PRN (08:45)
[2019-08-01] MEDS ORDERED: ONDANSETRON HCL 4 MG TABLET PO PRN (08:45)
[2019-08-01] MEDS ORDERED: IBUPROFEN 400 MG TABLET PO PRN (08:45)
[2019-08-01] MEDS ORDERED: LOPERAMIDE HCL 2 MG CAPSULE PO PRN (08:45)
[2019-08-01] MEDS ORDERED: ACETAMINOPHEN 325 MG TABLET PO PRN (08:45)
[2019-08-01] MEDS ORDERED: GuaiFENesin/D-METHORPHAN [SUGAR-FREE] 200-20MG/10 ML SYRUP UDCUP PO PRN (08:45)
[2019-08-01] MEDS ORDERED: CloNIDine HCL 0.1 MG TABLET PO PRN (08:45)
[2019-08-01] MEDS ORDERED: MAG HYDROX/AL HYDROX/SIMETH ES 30 ML SUSPENSION UDCUP PO PRN (08:45)
[2019-08-01] MEDS: BuPROPion HCL XL 150 MG ER TABLET PO SCH (14:50)
[2019-08-01 17:15] VITALS: BP 146/85
[2019-08-01] MEDS: QUEtiapine FUMARATE 200 MG TABLET PO SCH (20:31)
[2019-08-02] MEDS: BuPROPion HCL XL 150 MG ER TABLET PO SCH (08:14)
[2019-08-02 08:59] VITALS: BP 128/71
[2019-08-02] MEDS: LORazepam 2 MG TABLET PO PRN ×2 (09:16→18:41)
[2019-08-02 16:02] VITALS: BP 117/88
[2019-08-02] MEDS: QUEtiapine FUMARATE 200 MG TABLET PO SCH (20:02)
[2019-08-03] MEDS: BuPROPion HCL XL 150 MG ER TABLET PO SCH (08:46)
[2019-08-03] MEDS: LORazepam 2 MG TABLET PO PRN (10:11)
[2019-08-03 12:47] VITALS: BP 130/76
[2019-08-03 16:00] VITALS: BP 136/86
[2019-08-03] MEDS: FLUTICASONE PROPIONATE 50 MCG/SPRAY 16 GM NASAL SPRAY NASAL SCH (16:13)
[2019-08-03] MEDS: QUEtiapine FUMARATE 200 MG TABLET PO SCH (20:06)
[2019-08-04] MEDS: BuPROPion HCL XL 150 MG ER TABLET PO SCH (08:06)
[2019-08-04] MEDS: FLUTICASONE PROPIONATE 50 MCG/SPRAY 16 GM NASAL SPRAY NASAL SCH ×2 (08:06→17:13)
[2019-08-04 08:10] VITALS: BP 147/98
[2019-08-04] MEDS: LORazepam 2 MG TABLET PO PRN ×2 (12:51→19:35)
[2019-08-04 17:00] VITALS: BP 142/94
[2019-08-04] MEDS: QUEtiapine FUMARATE 200 MG TABLET PO SCH (20:08)
[2019-08-05] MEDS: FLUTICASONE PROPIONATE 50 MCG/SPRAY 16 GM NASAL SPRAY NASAL SCH ×2 (07:47→17:01)
[2019-08-05] MEDS: BuPROPion HCL XL 150 MG ER TABLET PO SCH (07:47)
[2019-08-05 11:36] VITALS: BP 148/89
[2019-08-05] MEDS: LORazepam 2 MG TABLET PO PRN (11:57)
[2019-08-05 17:42] VITALS: BP 118/72
[2019-08-05] MEDS: QUEtiapine FUMARATE 200 MG TABLET PO SCH (20:13)
[2019-08-06] MEDS: FLUTICASONE PROPIONATE 50 MCG/SPRAY 16 GM NASAL SPRAY NASAL SCH ×2 (08:01→16:45)
[2019-08-06] MEDS: BuPROPion HCL XL 150 MG ER TABLET PO SCH (08:01)
[2019-08-06] MEDS: LORazepam 2 MG TABLET PO PRN (09:04)
[2019-08-06 09:33] VITALS: BP 150/91
[2019-08-06] MEDS: QUEtiapine FUMARATE 200 MG TABLET PO SCH (20:51)
[2019-08-06 21:51] VITALS: BP 137/84
[2019-08-07] MEDS: FLUTICASONE PROPIONATE 50 MCG/SPRAY 16 GM NASAL SPRAY NASAL SCH ×2 (08:24→16:20)
[2019-08-07] MEDS: BuPROPion HCL XL 150 MG ER TABLET PO SCH (08:26)
[2019-08-07 09:00] VITALS: BP 130/86
[2019-08-07] MEDS: HALOPERIDOL 5 MG TABLET PO PRN ×2 (09:57→15:39)
[2019-08-07] MEDS: LORazepam 2 MG TABLET PO PRN ×2 (09:57→15:39)
[2019-08-07 17:26] VITALS: BP 119/93
[2019-08-07] MEDS: QUEtiapine FUMARATE 200 MG TABLET PO SCH (20:07)
[2019-08-08] MEDS: BuPROPion HCL XL 150 MG ER TABLET PO SCH (07:43)
[2019-08-08] MEDS: FLUTICASONE PROPIONATE 50 MCG/SPRAY 16 GM NASAL SPRAY NASAL SCH ×2 (07:44→16:37)
[2019-08-08] MEDS: HALOPERIDOL 5 MG TABLET PO PRN ×4 (09:30→18:44)
[2019-08-08] MEDS: LORazepam 2 MG TABLET PO PRN ×4 (09:30→18:42)
[2019-08-08 09:40] VITALS: BP 158/88
[2019-08-08 16:35] VITALS: BP 148/81
[2019-08-08] MEDS: QUEtiapine FUMARATE 200 MG TABLET PO SCH (20:04)
[2019-08-09] MEDS: FLUTICASONE PROPIONATE 50 MCG/SPRAY 16 GM NASAL SPRAY NASAL SCH (09:01)
[2019-08-09] MEDS: BuPROPion HCL XL 150 MG ER TABLET PO SCH (09:02)
[2019-08-09] MEDS: HALOPERIDOL 5 MG TABLET PO PRN (09:10)
[2019-08-09] MEDS: LORazepam 2 MG TABLET PO PRN (09:10)
[2019-08-09] MEDS ORDERED: BUPR-47 PO (11:00)
[2019-08-09] MEDS ORDERED: QUET200T29 PO (11:00)
[2019-08-09 11:10] VITALS: BP 142/76
== END 2019-08-09 12:15 | disposition home or self-care (01) | DRG 885 ==
LOC: EMS 18:19 → 3EX 08-01 03:00
DX: F25.1 Schizoaffective disorder, depressive type (principal); F15.20 Other stimulant dependence, uncomplicated; R45.851 Suicidal ideations; D72.829 Elevated white blood cell count, unspecified; F41.9 Anxiety disorder, unspecified; G44.209 Tension-type headache, unspecified, not intractable; I10 Essential (primary) hypertension; J30.9 Allergic rhinitis, unspecified; Z79.899 Other long term (current) drug therapy
CPT/HCPCS: 87081; G0378; G0480